=== PATIENT | female | born 1935 ===

== ENCOUNTER 2019-02-03 09:29 | Day surgery (SDC) | payer MEDICARE ==
[2019-02-03] MEDS ORDERED: LIDOcaine 1%/PF 5ML 10 MG/ML VIAL ONE (10:29)
[2019-02-03] MEDS ORDERED: mupirocin 2% ointment 22GM ONE (11:08)
== END 2019-02-03 11:19 | disposition home or self-care (01) ==
LOC: WOUND CARE 09:29
PROVIDERS: ATTEND Surgery
DX: C44.629 Squamous cell carcinoma of skin of left upper limb, including shoulder (principal); I10 Essential (primary) hypertension; E03.9 Hypothyroidism, unspecified
CPT/HCPCS: 11604; 88305; A4663; A6209; A6446